=== PATIENT | female | born 1995 | race Caucasian/White ===

== ENCOUNTER 2017-01-05 14:13 | Inpatient (IN) | payer MEDICAID ==
[~2017-01-05] VITALS: Ht 157.5 cm; Wt 84.4 kg
[2017-01-05] MEDS ORDERED: PREN-380 PO (14:45)
[2017-01-05] MEDS ORDERED: FERR325E14 PO (14:46)
[2017-01-05 14:49] VITALS: BP 130/80
[2017-01-05] MEDS ORDERED: LACTATED RINGERS 1,000 ML IV SCH (20:33)
[2017-01-05] MEDS ORDERED: LACTATED RINGERS 500 ML IV ONE (20:35)
[2017-01-05] MEDS ORDERED: OXYTOCIN 10 UNITS/ML VIAL IM SCH (20:35)
[2017-01-05] MEDS ORDERED: PROMETHAZINE 25 MG/ML VIAL IVP PRN (20:35)
[2017-01-05] MEDS ORDERED: OXYTOCIN 20 UNITS/LR PREMIX 1,000 ML IV SCH ×3 (20:35→21:45)
[2017-01-05] MEDS ORDERED: NALBUPHINE HYDROCHLORIDE 10 MG/ML VIAL IVP PRN (20:35)
[2017-01-05] MEDS ORDERED: MISOPROSTOL 25 MCG TAB VG PRN (20:45)
[2017-01-05 21:32] LABS: EOSINOPHILS # (AUTO) 0.1 K/uL (0-0.4); EOSINOPHILS % (AUTO) 0.5 % (0.0-4.0); HEMATOCRIT 36.6 % (36-48); HEMOGLOBIN 12.1 g/dL (12.0-16.0); LYMPHOCYTES # (AUTO) 2.8 K/uL (2.5-16.5); LYMPHOCYTES % (AUTO) 27.2 % (20.5-51.1); MEAN CORPUSCULAR HEMOGLOBIN 31 pg (27-31); MEAN CORPUSCULAR HGB CONC 33 g/dL (33-37); MEAN CORPUSCULAR VOLUME 94 fL (80-94); MONOCYTES # (AUTO) 0.8 K/uL (0.8-1.0); MONOCYTES % (AUTO) 7.4 % (1.7-9.3); NEUTROPHILS # (AUTO) 6.5 K/uL (1.8-7.7); NEUTROPHILS % (AUTO) 64.9 % (42.2-75.2); PLATELET COUNT (AUTO) 107 K/uL (140-450); WHITE BLOOD COUNT (AUTO) 10.2 K/uL (4.5-11.0)
[2017-01-05] MEDS ORDERED: NALBUPHINE 10 MG/ML AMP IVP PRN (21:45)
[2017-01-05] MEDS ORDERED: MISOPROSTOL 25 MCG TAB VG ONE (21:45)
[2017-01-05] MEDS ORDERED: MISOPROSTOL 25 MCG TAB ONE (21:54)
[2017-01-05 23:15] VITALS: BP 130/74
[2017-01-06] MEDS ORDERED: NALBUPHINE HYDROCHLORIDE 10 MG/ML VIAL ONE (01:23)
[2017-01-06] MEDS ORDERED: PROMETHAZINE 25 MG/ML VIAL ONE (01:24)
[2017-01-06 01:38] LABS: APPEARANCE,URINE HAZY (CLEAR); BILIRUBIN,URINE NEGATIVE (NEGATIVE); BLOOD, URINE 1+ (NEGATIVE); COLOR,URINE YELLOW (YELLOW); LEUKOCYTE ESTERASE ,URINE TRACE (NEGATIVE); NITRITE, URINE NEGATIVE (NEGATIVE); PH,URINE 6.5 (5.0-9.0); PROTEIN,URINE NEGATIVE (NEGATIVE); UGLUCOSE NEGATIVE (NEGATIVE); UROBILINOGEN,URINE 0.2 EU/dL (0.2 - 1)
[2017-01-06 01:44] LABS: BACTERIA,URINE 1+ /HPF (None Seen)
[2017-01-06] MEDS ORDERED: LIDOCAINE 1% 50 ML ONE (02:04)
[2017-01-06] MEDS ORDERED: OXYTOCIN 10 UNITS/ML VIAL ONE (02:05)
[2017-01-06] MEDS ORDERED: OXYTOCIN 20 UNITS/LR PREMIX 1,000 ML IV ONE (03:27)
[2017-01-06] MEDS ORDERED: OXYTOCIN 20 UNITS/LR PREMIX 1,000 ML IV SCH (04:34)
[2017-01-06] MEDS ORDERED: MEASLES, MUMPS, AND RUBELLA 1 VIAL SQVAC PRN (04:35)
[2017-01-06] MEDS ORDERED: DOCUSATE SODIUM 100 MG GELCAP PO PRN (04:35)
[2017-01-06] MEDS ORDERED: oxyCODONE/APAP 5/325 MG 1 TAB TAB PO PRN (04:35)
[2017-01-06] MEDS ORDERED: BENZOCAINE/MENTHOL 20%-0.5% 60 GM CAN TP PRN (04:35)
[2017-01-06] MEDS ORDERED: WITCH HAZEL 40 PAD PACKAGE TP PRN (04:35)
[2017-01-06] MEDS ORDERED: BISACODYL 5 MG TABEC PO PRN (04:35)
[2017-01-06] MEDS: ACETAMINOPHEN 325 MG TAB PO PRN (21:03)
[2017-01-07] MEDS ORDERED: LIDOCAINE 1% 500 MG/50 ML VIAL INJ SCH (00:20)
--- NOTE | 2017-01-07 06:51 | NUR ---
PATIENT HAS BEEN SCREENED AND CATEGORIZED LOW NUTRITION RISK. PATIENT WILL BE SEEN WITHIN 7 DAYS OF ADMISSION. 01/11/17 JULIETH CADENA MS, RDN
[2017-01-07 07:18] LABS: BASOPHILS # (AUTO) 0.1 K/uL (0.00-0.22); BASOPHILS % (AUTO) 0.8 % (0.0-2.0); EOSINOPHILS # (AUTO) 0.1 K/uL (0-0.4); EOSINOPHILS % (AUTO) 0.5 % (0.0-4.0); HEMATOCRIT 36.9 % (36-48); HEMOGLOBIN 12.4 g/dL (12.0-16.0); LYMPHOCYTES # (AUTO) 3.3 K/uL (2.5-16.5); MEAN CORPUSCULAR HEMOGLOBIN 32 pg (27-31); MEAN CORPUSCULAR HGB CONC 33 g/dL (33-37); MEAN CORPUSCULAR VOLUME 95 fL (80-94); MONOCYTES # (AUTO) 0.7 K/uL (0.8-1.0); NEUTROPHILS # (AUTO) 9.4 K/uL (1.8-7.7); PLATELET COUNT (AUTO) 122 K/uL (140-450); RED BLOOD CELL COUNT(AUTO) 3.89 MIL/uL (4.20-5.40); RED CELL DISTRIBUTION WIDTH 13.2 % (11.6-13.7); WHITE BLOOD COUNT (AUTO) 13.6 K/uL (4.5-11.0)
[2017-01-07 07:50] LABS: LYMPHOCYTES % (AUTO) 24.4 % (20.5-51.1); MONOCYTES % (AUTO) 5.5 % (1.7-9.3); NEUTROPHILS % (AUTO) 68.8 % (42.2-75.2)
[2017-01-07] MEDS ORDERED: IBUP-2213 DT (10:00)
[2017-01-07] MEDS: ACETAMINOPHEN 325 MG TAB PO PRN (20:02)
[2017-01-08] MEDS ORDERED: FERR325E14 PO (11:02)
[2017-01-08] MEDS ORDERED: ACET-2619 PO (11:04)
== END 2017-01-08 14:30 | disposition home or self-care (01) | DRG 560 ==
LOC: MLD 14:13 → OBSVTOIN 20:00 → MFCC 01-06 07:29
PROVIDERS: ADMIT Obstetrics & Gynecology; ATTEND Obstetrics & Gynecology
PROC: 10E0XZZ Delivery of Products of Conception, External Approach (ICD-10-PCS; principal; 2017-01-06)
PROC: 3E033VJ Introduction of Other Hormone into Peripheral Vein, Percutaneous Approach (ICD-10-PCS; 2017-01-06)
PROC: 3E0P7GC Introduction of Other Therapeutic Substance into Female Reproductive, Via Natural or Artificial Opening (ICD-10-PCS; 2017-01-06)
PROC: 0HQ9XZZ Repair Perineum Skin, External Approach (ICD-10-PCS; 2017-01-06)
DX: O41.03X0 Oligohydramnios, third trimester, not applicable or unspecified (principal); O70.9 Perineal laceration during delivery, unspecified; Z37.0 Single live birth; Z3A.40 40 weeks gestation of pregnancy
CPT/HCPCS: G0378 ×6; 36415; 51702; 59200; 59409; 76805; 81001; 85025; 86886; 86900; 86901; 87086; 90707; 90715; C1758; J2001; J2300; J2550; J2590; J7120; Q0092